=== PATIENT | male | born 1995 | race Caucasian/White ===

== ENCOUNTER → 2021-11-04 | Outpatient (CLI) | payer BC ==
--- NOTE | 2021-11-04 08:25 | RAD ---
XR HAND_LEFT 3 VIEWS DATE: 11/04/2021 7:58 AM INDICATION: 3RD DIGIT INJURY, SWELLING BRUISING, CRUSHED FINGER IN DOOR COMPARISON: None. FINDINGS: Bones: Nondisplaced fracture along the ulnar aspect of the of the distal tuft of the third distal pha lanx. Joints: The joint spaces are normal. Miscellaneous: Distal third digit soft tissue swelling. IMPRESSION: Nondisplaced third distal phalanx distal tuft fracture. Electronically signed by: Enmanuel Carreon MD (11/04/2021 8:22 AM) [id number]
== END ==
LOC: RAD 07:50
PROVIDERS: ATTEND Nurse Practitioner Family
DX: S62.663A Nondisplaced fracture of distal phalanx of left middle finger, initial encounter for closed fracture (principal); M25.442 Effusion, left hand; X58.XXXA Exposure to other specified factors, initial encounter; Y93.89 Activity, other specified; Y92.89 Other specified places as the place of occurrence of the external cause; Y99.8 Other external cause status
CPT/HCPCS: 73130